=== PATIENT | male | born 1960 | race Caucasian/White ===

== ENCOUNTER 2018-09-23 17:15 | Emergency (ER) | payer OTHER ==
[~2018-09-23] VITALS: Ht 185.4 cm; Wt 104.3 kg
[~2018-09-23 17:15] MED LIST: AMOX TR-K CLV1 EACH PO; BACTRIM DS TAB1 EACH PO; CIPROFLOXACIN500 MG PO; COUMADIN5 MG PO; DILTIAZEM ER180 MG PO; DOXYCYCLINE HY100 MG PO; FENOFIBRATE134 MG PO; JANUMET XR 1001 EACH PO; LASIX20 MG PO; LEVEMIR100 UNIT/1 SUB-Q; LEVOFLOXACIN500 MG PO; LIPITOR10 MG PO; LISINOPRIL40 MG PO; METFORMIN HCL1000 MG PO; METOPROLOL SUC100 MG PO; METOPROLOL SUCC50 MG PO; NORCO 7.5-3251 EACH PO; OMEPRAZOLE40 MG PO; POTASSIUM CHLO10 MEQ PO; PROVENTIL HFA6.7 GM INH; SYNTHROID25 MCG PO; TORSEMIDE20 MG PO; VICTOZA 3-0.6 MG/0.1 SUB-Q; XARELTO20 MG PO
[2018-09-23] MEDS ORDERED: OZEMPIC1 MG/0.75 SUB-Q (17:57)
[2018-09-23] MEDS ORDERED: TRESIBA FL100 UNIT/1 SUB-Q (17:58)
[2018-09-23] MEDS ORDERED: ELIQUIS5 MG PO (17:58)
[2018-09-23] MEDS ORDERED: ALPHA LIPOIC A300 MG PO (17:58)
[2018-09-23] MEDS ORDERED: FENOFIBRATE145 MG PO (17:59)
[2018-09-23] MEDS ORDERED: JARDIANCE25 MG PO (17:59)
--- NOTE | 2018-09-24 12:17 | EKG ---
[facility] [address] [facility] [place] [address] Signed Atrial fibrillation with rapid ventricular response with premature ventricular or aberrantly conducted complexes Nonspecific T wave abnormality Abnormal ECG When compared with ECG of 21-JAN-2017 01:06, Atrial fibrillation has replaced Sinus rhythm ST now depressed in Inferior leads Nonspecific T wave abnormality, improved in Lateral leads Confirmed by YOSEF DELACRUZ DO ([id number]) on 09/24/2018 12:17:43 PM Electronically Signed By: YOSEF DELACRUZ DO 09/24/18 1217 PATIENT NAME: DINORAHPOLLO ERAN Electrocardiogram DATE OF : 64 PHYSICIAN: YOSEF DELACRUZ DO REPORT #: [id number] REPORT IS CONFIDENTIAL AND NOT TO BE RELEASED WITHOUT AUTHORIZATION
== END 2018-09-23 22:37 | disposition home or self-care (01) ==
LOC: ED 17:15
DX: K31.9 Disease of stomach and duodenum, unspecified (principal); I48.91 Unspecified atrial fibrillation; R63.4 Abnormal weight loss; E11.9 Type 2 diabetes mellitus without complications; I10 Essential (primary) hypertension; Z79.899 Other long term (current) drug therapy
CPT/HCPCS: 74177; 80053; 81001; 83690; 84484; 85025; 93005; 93010; 96361; 96374; 96375; 99284-25; J7030; Q9967